=== PATIENT | female | born 1950 | race Native Hawaiian/Other Pacific Islander ===

== ENCOUNTER 2020-04-19 17:14 | Inpatient (IN) | payer OTHER ==
[~2020-04-19] VITALS: Ht 149.9 cm; Wt 48.5 kg
[~2020-04-19 17:14] MED LIST: amLODIPine 5 MG TAB PO SCH
[2020-04-19] MEDS ORDERED: NORV2TAB PO (17:30)
[2020-04-19] MEDS ORDERED: SPIR-10 PO (17:30)
[2020-04-19] MEDS ORDERED: amLODIPine 5 MG TAB PO ONE ×2 (17:45→22:30)
[2020-04-19] MEDS ORDERED: LIDOCAINE 1% MDV 20ML VIAL As Ordered ONE (18:13)
[2020-04-19] MEDS ORDERED: LIDOCAINE 1% MDV 20ML VIAL SC ONE (18:15)
[2020-04-19] MEDS ORDERED: PRESCAP PO (18:57)
[2020-04-19] MEDS ORDERED: ALEV220T22 PO (18:57)
[2020-04-19] MEDS ORDERED: CENT1TAB PO (18:57)
[2020-04-19] MEDS ORDERED: MOM 30ML SUSPENSION UDC PO PRN (20:15)
--- NOTE | 2020-04-19 20:35 | HPEPDOC ---
General Date of Admission 04/19/20 Date of Service: Apr 19, 2020 Chief Complaint The patient is a 69-year-old female admitted with a reason for visit of Hand Swelling. Source: Patient, RN/MD History of Present Illness 69 year old female was transferred to our ED from [facility]. She presented to the outside hospital for a right hand 5th finger laceration and puncture wound which happened 1 week ago at home with a can. Her right hand started swelling 3 days ago and got progressively worse so presented to the ED. Patient was transferred to our ED for evaluation by hand surgeon for concerns of septic arthritis. Here she complained of right hand pain redness and swelling. The pain was dull aching in nature about 6/10 in intensity with no radiation Paeitn was seen by Dr Lemos and an incision and drainage was done at bed side in the ED. On presentation her Bp was uncontrolled at 210/110. She was admitted for right hand cellulitis and abscess and hypertensive urgency. She just moved up from [place] to live with her daughter 2 months ago. Does not have a PMD. She ran out of her medications 2 weeks ago. Labs from [facility] WBC 9.4, Hb 11.5, Plat 272, BMP was within normal limits. She received clindamycin 600 mg at [facility]. Home Medications Scheduled Amlodipine Besylate (Norvasc) 2.5 Mg Tablet, 2.5 MG PO DAILY, (Reported) Multivit-Min/FA/Lycopen/Lutein (Centrum Silver Tablet) 1 Each Tablet, 1 TAB PO DAILY, (Reported) Spironolactone (Spironolactone) 25 Mg Tablet, 25 MG PO BID, (Reported) Vit A/Vit C/Vit E/Zinc/Copper (Preservision Areds Softgel) 1 Each Capsule, 1 CAP PO BID, (Reported) Scheduled PRN Naproxen Sodium (Aleve) 220 Mg Tablet, 220 MG PO BID PRN for ARTHRITIS, (Reported) Allergies Coded Allergies: Penicillins (Verified Allergy, Unknown, hives, 04/19/20) Past Medical History Medical History asthma hypertension seasonal allergies arthritis Murmur Surgical History c section Family History Significant Family History: Lung disease (brother [id number] emphysema), Other (Mother stroke) Social History * Smoker: Denies Alcohol: Denies Drugs: denies A-FIB/CHADSVASC A-FIB History Current/History of A-Fib/PAF?: No Review of Systems Constitutional: Denies: Chills, Fever, Night Sweats Eyes: Denies: Pain, Vision change ENT: Denies: Head Aches, Ear Pain, Dysphagia Skin: Reports: Other (swelling and redness of the right hand) Pulmonary: Denies: Dyspnea, Cough Cardiovascular: Denies: Chest Pain, Palpitations, Orthopnea, Paroxysmal Noc. Dyspnea, Lt Headedness Gastrointestinal: Denies: Nausea, Vomiting, Abdominal Pain, Diarrhea Genitourinary: Denies: Dysuria, Frequency, Incontinence, Retention Hematologic: Denies: Bruising, Bleeding Excessively Musculoskeletal: Reports: Joint Pain; Denies: Neck Pain, Back Pain, Muscle Pain, Spasms Physical Examination General Exam: Positive: Alert, Cooperative, No Acute Distress Eye Exam: Positive: PERRLA, Conjunctiva & lids normal, EOMI; Negative: Sclera icteric ENT Exam: Positive: Atraumatic, Mucous membr. moist/pink, Pharynx Normal Neck Exam: Positive: Supple; Negative: JVD, thyromegaly Chest Exam: Positive: Clear to auscultation, Normal air movement Heart Exam: Positive: Rate Normal, Regular Rhythm, Normal S1, Normal S2, Murmurs (systolic murmur in the aortic area); Negative: Rubs Abdomen Exam: Positive: Normal bowel sounds, Soft; Negative: Tenderness, Hepatospenomegaly Extremity Exam: Negative: Clubbing, Cyanosis, Edema Skin Exam: Positive: Lesion (laceration on right 5th finfer with inflammation and swelling of the right hand. ) Neuro Exam: Positive: Normal Gait, Normal Speech, Cranial Nerves 3-12 NL Psych Exam: Positive: Mental status NL, Mood NL, Oriented x 3 Vital Signs Vital Signs Date Time Temp Pulse Resp B/P (MAP) Pulse Ox O2 Delivery O2 Flow Rate FiO2 04/19/20 19:13 169/90 (116) 04/19/20 17:27 99.0 80 20 98 Room Air Laboratory Data Microbiology Microbiology 04/19/20 Blood Culture, Received Pending 04/19/20 Blood Culture, Received Pending 04/19/20 Gram Stain, Received Pending 04/19/20 Wound Culture, Received Pending Assessment/Plan 69 year old female was transferred to our ED from [facility]. She presented to the outside hospital for a right hand 5th finger laceration and puncture wound which happened 1 week ago at home with a can. Her right hand started swelling 3 days ago and got progressively worse so presented to the ED. Patient was transferred to our ED for evaluation by hand surgeon for concerns of septic arthritis. Here she complained of right hand pain redness and swelling. The pain was dull aching in nature about 6/10 in intensity with no radiation Pateint was seen by Dr Lemos and an incision and drainage was done at bed side in the ED. On presentation her Bp was uncontrolled at 210/110. She was admitted for right hand cellulitis and abscess and hypertensive urgency. Right hand cellulitis and abscess. I& D done by Dr Lemos continue vanco follow up cultures Hypertensive urgency ran out of meds restarted home meds at higher dose of amlodipine, continue spironolactone Seasonal allergies and asthma albuterol prn Heart murmur known since will get echo. Plan / VTE VTE Prophylaxis Ordered?: Yes CORRY GRACE MD Apr 19, 2020 19:54
[2020-04-19] MEDS ORDERED: VANCOMYCIN HCL 1,000 MG, VIAL MATE ADAPTER 1 EACH in D5W 250 ML IV ONE (21:00)
[2020-04-19] MEDS ORDERED: ENOXAPARIN 40MG/0.4ML SYRINGE (J1650 PER 10MG) SC SCH (21:00)
[2020-04-19] MEDS ORDERED: **hydrALAZINE** 10 MG TAB PO ONE (21:45)
[2020-04-19 22:45] VITALS: BP 176/106
[2020-04-19] MEDS: **hydrALAZINE HCL** 25 MG TAB PO SCH (23:11)
[2020-04-20] VITALS: BP 134/77
[2020-04-20 00:07] LABS: BLOOD UREA NITROGEN 10 MG/DL (7-18); CALCIUM LEVEL 8.4 MG/DL (8.8-10.2); CARBON DIOXIDE LEVEL 27 MEQ/L (21-32); CHLORIDE LEVEL 104 MEQ/L (98-107); GLOMERULAR FILTRATION RATE > 60.0 (>39); GLUCOSE, FASTING 170 MG/DL (70-100); POTASSIUM SERUM 3.3 MEQ/L (3.5-5.1); SODIUM LEVEL 139 MEQ/L (136-145)
--- NOTE | 2020-04-20 00:19 | PHACANCOPD ---
PHARMACY VANCOMYCIN DOSING Pt Demographics Demographics Patient Age:69 , Weight:48.500 , Gender: female Adjusted Body Weight Date: 04/20/20, Adjusted Body Weight: Kg Events Past 24 Hours Events Past 24 Hours: NO: Dialysis, Diuretic Therapy, Change in CrCl, Fever, Elevation in WBC, Pending Diagnostics, Pending Procedures, Other Vancomycin Vancomycin Target Ranges: 15-20 mcg/ml Vancomycin Load Y/N: Yes Load Dose Date Time Vancomycin Load Dose: 1000mg Date: 04-19 Time: 2100 Vancomycin Dose Date: 04/20/20. Current Vancomycin Dose: Intermittent Dosing?: No Labs Labs Item Value Date Time Creatinine 0.70 MG/DL 04/19/20 2332 Glomerular Filtration Rate > 60.0 04/19/20 2332 Blood Urea Nitrogen 10 MG/DL 04/19/20 2332 Micro Microbiology 04/19/20 Blood Culture, Received Pending 04/19/20 Blood Culture, Received Pending 04/19/20 Gram Stain, Received Pending 04/19/20 Wound Culture, Received Pending Creatinine Clearance Date:04/20/20. Creatinine Clearance: [~40]. Pending Labs Trough - @1999 Assessment and Plan Maintaining Current Dose?: Yes Reason for dose change: No Dose Change Pharmacist Note Pharmacist Note Date: 04/20/20. Pharmacist note:Will monitor and make adjustments as needed. ARUN ESCALERA PHARMACY Apr 20, 2020 00:19
[2020-04-20] MEDS ORDERED: ALBUTEROL 90 MCG/ACT 8GM HFA INHALER INH PRN (01:30)
[2020-04-20] MEDS ORDERED: POTASSIUM CHLORIDE 10 MEQ SR TABLET PO ONE (01:30)
--- NOTE | 2020-04-20 04:53 | CR ---
DATE OF CONSULTATION: 04/19/2020 REASON FOR ADMISSION: Cellulitis and abscess right hand. PRESENT ILLNESS: 69-year-old right hand dominant female who was transferred from [facility]. There, she presented with swelling and pain of the right hand. A week earlier, she cut dorsum of the hand over the region of the metacarpophalangeal (MCP) joint of the 5th digit on a tin can and gradually developed swelling, redness, no fevers, but pain in that area. She presented to [facility] and found to have an elevated sedimentation rate and C-reactive protein (CRP) with swelling and cellulitis. I was called, and she was transferred to [facility] for further evaluation and care. She complains only of isolated soreness of the right hand. No fevers or chills. PAST MEDICAL HISTORY: Significant for some seasonal allergic rhinitis, asthma, hypertension, and some arthritis. PAST SURGICAL HISTORY: (C) sections times six for her children. MEDICATIONS: - Norvasc 2.5 mg daily - spironolactone ALLERGIES: To PENICILLIN, causes hives back in her 20s. SOCIAL HISTORY: She is . Just recently moved here from [place]. Originally from the [facility]. She is living with her children here in [facility]. She does not smoke or drink alcohol. She cares for her , who has Alzheimer disease, at home. ON EXAMINATION: She is a very pleasant, alert [place] female complaining only of isolated soreness to her right hand. Her vital signs reveal temperature of 99, blood pressure 210/98, respirations 20, pulse 80, oxygen saturation 98% on room air. HEENT exam was benign. Right upper extremity examination reveals a swollen dorsum of the hand with an enlarged, tender, fluctuant mass with a healed over transverse laceration over the dorsum near the region of the MCP joint of the right 5th digit. She has Heberden nodules and arthritic joints distally throughout her hand, but she could flex and extend with normal motor function in both flexion and extension as well as intact sensation distal to the area. The wrist is nontender. There is no irritability with dorsiflexion, palmar flexion of the wrist, or pronation/supination of the forearm. Flexion/extension of the MCP joint of the right 5th MCP joint does not cause severe pain as if there is synovitis. [facility] laboratory studies were reviewed. X-ray of the right hand shows multiple degenerative changes of the hand but no evidence of any fracture or acute lytic or blastic lesion or obvious osteomyelitis. Her white count was 9.4, hematocrit of 35.8 with platelets of 272. Neutrophils were normal at 72.1%. Sodium was 141, potassium 4.1, chloride 102, CO2 of 27, glucose 99, BUN 15, creatinine 0.8. Protein was normal. Liver function tests were normal. Her sedimentation rate was elevated at 56, normal being 0-30; and a CRP was elevated at 27.84, normal being 1-3. Protime 12.3. INR 0.91. Blood cultures were ordered at [place] and are pending. Tetanus was updated at [facility], and she had received clindamycin intravenous (IV) push 600 mg at 1447 hours. IMPRESSION: 1. Right hand cellulitis with a dorsal abscess of the right hand. I recommend irrigation, debridement, and culture of this area and likely would benefit from inpatient admission for IV antibiotics and observation with elevation and then refining the antibiotics based on results of the cultures from the irrigation and debridement (I and D). 2. Hypertension. We will ask the hospitalist to help us with medical optimization and care for her high blood pressure. Edited: marcio 04/21/2020 1046 MTDD
[2020-04-20] MEDS: **hydrALAZINE HCL** 25 MG TAB PO SCH (05:34)
[2020-04-20 06:00] VITALS: BP 133/83
[2020-04-20 06:45] LABS: BASO % 0.4 % (0.0-1.0); EOS # 0.2 10^3/uL (0.0-0.5); EOS % 2.5 % (0.0-3.0); HEMATOCRIT 35.3 % (36.0-47.0); HEMOGLOBIN 11.6 g/dl (12.0-15.5); LYMPH # 1.5 10^3/uL (1.5-5.0); MEAN CORPUSCULAR HEMOGLOBIN 30.8 pg (27.0-33.0); MEAN CORPUSCULAR HGB CONC 32.9 g/dl (32.0-36.5); MEAN CORPUSCULAR VOLUME 93.6 fl (80.0-96.0); MONO # 0.6 10^3/uL (0.0-0.8); MONO % 8.5 % (0.0-5.0); NEUTROPHILS # 4.9 10^3/uL (1.5-8.5); NEUTROPHILS % 67.3 % (36.0-66.0); PLATELET COUNT, AUTOMATED 273 10^3/uL (150-450); RED BLOOD COUNT 3.77 10^6/uL (4.00-5.40); WHITE BLOOD COUNT 7.3 10^3/uL (4.0-10.0)
[2020-04-20 07:17] LABS: BLOOD UREA NITROGEN 10 MG/DL (7-18); CALCIUM LEVEL 8.6 MG/DL (8.8-10.2); CARBON DIOXIDE LEVEL 26 MEQ/L (21-32); CHLORIDE LEVEL 107 MEQ/L (98-107); CREATININE FOR GFR 0.64 MG/DL (0.55-1.30); GLOMERULAR FILTRATION RATE > 60.0 (>39); GLUCOSE, FASTING 85 MG/DL (70-100); POTASSIUM SERUM 3.7 MEQ/L (3.5-5.1); SODIUM LEVEL 140 MEQ/L (136-145)
[2020-04-20] MEDS ORDERED: NORCO, ANEXSIA 5/325MG TABLET (HYDROcodone/ACETAMINOPHEN) PO PRN (08:45)
[2020-04-20] MEDS ORDERED: SPIRONOLACTONE 50 MG TAB PO SCH (09:00)
[2020-04-20] MEDS ORDERED: amLODIPine 5 MG TAB PO SCH ×2 (09:00)
[2020-04-20 09:01] VITALS: BP 133/83
[2020-04-20] MEDS ORDERED: DOXY-350 PO (10:25)
[2020-04-20] MEDS ORDERED: AMLO5TAB6 PO (10:27)
--- NOTE | 2020-04-20 13:29 | DS.PDOC ---
Discharge Summary General Date of Admission Apr 19, 2020 at 20:07 Date of Discharge 04/20/20 Specialist/Consultants Involve ortho - dr sawant Discharge Summary PROCEDURES PERFORMED DURING STAY: debridement ADMITTING DIAGNOSES: 1. hypertensive urgency 2. right hand cellulitis COMPLICATIONS/CHIEF COMPLAINT: Cellulitis Of Rt Hand Hypertensive Urgency. HISTORY OF PRESENT ILLNESS: 69 year old female was transferred to our ED from [facility]. She presented to the outside hospital for a right hand 5th finger laceration and puncture wound which happened 1 week ago at home with a can. Her right hand started swelling 3 days ago and got progressively worse so presented to the ED. Patient was transferred to our ED for evaluation by hand surgeon for concerns of septic arthritis. Here she complained of right hand pain redness and swelling. The pain was dull aching in nature about 6/10 in intensity with no radiation Paeitn was seen by Dr Lemos and an incision and drainage was done at bed side in the ED. On presentation her Bp was uncontrolled at 210/110. She was admitted for right hand cellulitis and abscess and hypertensive urgency. She just moved up from [place] to live with her daughter 2 months ago. Does not have a PMD. She ran out of her medications 2 weeks ago. HOSPITAL COURSE: Underwent I&D with orthopedics. BP controlled with resuming her home medications. She is aware of her murmur, and states she has had extensive workup as an outpatient. She states she has been non-compliant with her blood pressure medications. She does not have a local PCP and has been set up with a PCP. DISCHARGE MEDICATIONS: Please see below. ALLERGIES: Please see below. PHYSICAL EXAMINATION ON DISCHARGE: VITAL SIGNS: Please see below. GENERAL: NAD, in good spirits, sitting comfortably at edge of bed HEENT: NC/AT, EOMI Lungs: CTA B/L Heart: +S1S2, RRR, systolic murmur ABd: soft, NT, +BS Ext: no edema, right hand bandages LABORATORY DATA: Please see below. ACTIVITY: [As tolerated]. DIET: 2 gram sodium DISPOSITION: Home, Self-Care. DISCHARGE INSTRUCTIONS: 1. Follow up with PCP in 3-5 days as scheduled 2. Follow up with orthopedics as scheduled 3. dressing changes as directed by ortho DISCHARGE CONDITION: [Stable]. TIME SPENT ON DISCHARGE: 35 minutes. Vital Signs/I&Os Vital Signs Date Time Temp Pulse Resp B/P (MAP) Pulse Ox O2 Delivery O2 Flow Rate FiO2 04/20/20 09:30 18 04/20/20 09:01 74 133/83 04/20/20 06:00 98.1 97 Room Air I&O- Last 24 Hours up to 6 AM 04/20/20 05:59 Intake Total 570 ml Balance 570 ml Laboratory Data Labs 24H Laboratory Tests 2 04/19/20 23:32: Anion Gap 8, Glomerular Filtration Rate > 60.0, Calcium Level 8.4L 04/20/20 06:12: Anion Gap 7L, Glomerular Filtration Rate > 60.0, Calcium Level 8.6L, Immature Granulocyte % (Auto) 0.3, Neutrophils (%) (Auto) 67.3H, Lymphocytes (%) (Auto) 21.0L, Monocytes (%) (Auto) 8.5H, Eosinophils (%) (Auto) 2.5, Basophils (%) (Auto) 0.4, Neutrophils # (Auto) 4.9, Lymphocytes # (Auto) 1.5, Monocytes # (Auto) 0.6, Eosinophils # (Auto) 0.2, Basophils # (Auto) 0.0, Nucleated Red Blood Cells % (auto) 0.0 CBC/BMP Laboratory Tests 04/19/20 23:32 04/20/20 06:12 Microbiology Microbiology 04/19/20 Blood Culture, Received Pending 04/19/20 Blood Culture, Received Pending 04/19/20 Gram Stain - Final, Resulted 04/19/20 Wound Culture, Resulted Pending Discharge Medications Scheduled Amlodipine Besylate (Amlodipine Besylate) 5 Mg Tablet, 5 MG PO DAILY Doxycycline Monohydrate (Doxycycline) 100 Mg Capsule, 100 MG PO BID Multivit-Min/FA/Lycopen/Lutein (Centrum Silver Tablet) 1 Each Tablet, 1 TAB PO DAILY, (Reported) Spironolactone (Spironolactone) 25 Mg Tablet, 25 MG PO BID, (Reported) Vit A/Vit C/Vit E/Zinc/Copper (Preservision Areds Softgel) 1 Each Capsule, 1 CAP PO BID, (Reported) Scheduled PRN Naproxen Sodium (Aleve) 220 Mg Tablet, 220 MG PO BID PRN for ARTHRITIS, (Reported) Allergies Coded Allergies: Penicillins (Verified Allergy, Unknown, hives, 04/19/20) JOSE BILL MD Apr 20, 2020 13:29
[2020-04-20] MEDS ORDERED: ALDA25TA2 PO (13:30)
[2020-04-20] MEDS ORDERED: VANCOMYCIN HCL 750 MG, VIAL MATE ADAPTER 1 EACH in D5W 250 ML IV SCH (21:00)
[2020-04-21] MEDS ORDERED: PREVNAR 13 VACCINE SYRINGE (CPT CODE:90670) IM ONE (09:00)
[2020-04-21] MEDS ORDERED: FLUBLOK(EGG FREE)(QUAD)INFLUENZA VACC 0.5ML SYRINGE (90682)18YRS&OLDER IM ONE (09:00)
== END 2020-04-20 12:00 | disposition home or self-care (01) | DRG 199 ==
LOC: EDBD 17:14 → M ED 17:14 → M ED INP 20:07 → ENRESERV 21:07 → M MS5PR 22:44
PROVIDERS: ADMIT Internal Medicine Nephrology; ATTEND Internal Medicine
DX: I16.0 Hypertensive urgency (principal); L03.113 Cellulitis of right upper limb; Z79.899 Other long term (current) drug therapy; Z88.0 Allergy status to penicillin; M19.90 Unspecified osteoarthritis, unspecified site; J45.909 Unspecified asthma, uncomplicated; I10 Essential (primary) hypertension

== ENCOUNTER 2025-07-12 07:53 | Day surgery (SDC) | payer MEDICARE ==
[~2025-07-12] VITALS: Ht 149.9 cm; Wt 51.1 kg
[~2025-07-12 07:53] MED LIST changes: +ALBU8.5H INH; +ALDA25TA2 PO; +ALEN70TA82 PO; +ALEV220T22 PO; +AMLO1TAB24 PO; +ATOR1TAB21 PO; +CENT1TAB PO; +CLOP75TA2 PO; +DOXY-440 PO; +FAMO1TAB11 PO; +FLUT1BLS2 INH; +LOSA25TA13 PO; +LR 1,000 ML IV SCH; +MIDAZOLAM INJ 2 MG/2 ML VIAL As Ordered ONE; +NORV2TAB PO; +PRESCAP PO; +SPIR-10 PO; -amLODIPine 5 MG TAB PO SCH
[2025-07-12] MEDS: PHENYLEPHRINE 2.5% OPHTH SOL 2ML OS SCH (08:43)
[2025-07-12] MEDS: FLURBIPROFEN 0.03% OPHTH SOLN 2.5 ML OS SCH (08:43)
[2025-07-12] MEDS: CYCLOPENTOLATE 1% OPHTH SOLN 2 ML BTL OS SCH (08:43)
[2025-07-12] MEDS: TETRACAINE 0.5% OPHTH SOLN 4ML OS SCH (08:44)
[2025-07-12] MEDS: LIDOCAINE 1% SDV 5 ML VIAL As Ordered ONE (10:23)
[2025-07-12] MEDS: CEFUROXIME 1 MG/0.1 ML INTRACAMERAL INJ As Ordered ONE (10:23)
[2025-07-12 10:46] VITALS: BP 195/96; TEMP 97; O2SAT 98
== END 2025-07-12 11:08 | disposition home or self-care (01) ==
LOC: M SDC 07:53
PROVIDERS: ATTEND Ophthalmology
DX: H25.12 Age-related nuclear cataract, left eye (principal); I25.10 Atherosclerotic heart disease of native coronary artery without angina pectoris; Z95.0 Presence of cardiac pacemaker; Z95.5 Presence of coronary angioplasty implant and graft; Z88.0 Allergy status to penicillin; Z79.899 Other long term (current) drug therapy
CPT/HCPCS: 66984; J0697; J2250; J3010; V2632